=== PATIENT | male | born 1955 | race African-American/Black ===

== ENCOUNTER 2018-02-09 16:06 | Emergency (ER) | payer SELFPAY ==
[~2018-02-09] VITALS: Ht 190.5 cm; Wt 135.0 kg
[2018-02-09] MEDS ORDERED: MENTHOL/LANOLIN/CALAMINE/ZN OX OINT 71GM TOP ONE (17:30)
[2018-02-09] MEDS ORDERED: MENTHOL/LANOLIN/CALAMINE/ZN OX OINT 71GM TOP SCH (18:00)
[2018-02-09 19:32] VITALS: BP 156/86
== END 2018-02-09 19:34 | disposition home or self-care (01) ==
LOC: ER 16:06
DX: S30.811A Abrasion of abdominal wall, initial encounter (principal); K94.09 Other complications of colostomy; M19.90 Unspecified osteoarthritis, unspecified site; F17.200 Nicotine dependence, unspecified, uncomplicated; X58.XXXA Exposure to other specified factors, initial encounter; Y93.89 Activity, other specified; Y92.89 Other specified places as the place of occurrence of the external cause; Y99.8 Other external cause status
CPT/HCPCS: 99283; 99284